=== PATIENT | female | born 1945 | race Caucasian/White ===

== ENCOUNTER 2024-04-23 11:31 | Outpatient (REF) | payer MEDICARE, SELFPAY ==
[2024-04-23 12:24] LABS: PCR FLU A Negative PCR FLU A (Negative); PCR FLU B Negative PCR FLU B (Negative); PCR RSV Negative PCR RSV (Negative); SARS PCR* Negative SARS-CoV-2 (Negative)
== END 2024-04-23 11:32 | disposition home or self-care (01) ==
LOC: NPINS 11:31
PROVIDERS: Visit Provider Nurse Practitioner Gerontology
DX: R50.9 Fever, unspecified (principal)
CPT/HCPCS: 87631

== ENCOUNTER 2024-08-25 15:17 | Outpatient (REF) | payer MEDICARE, OTHER, SELFPAY ==
[2024-08-25 15:57] LABS: Appearance Urine Cloudy (Clear); Bilirubin Urine Negative (Negative); Blood Urine Negative (Negative); Color Urine Yellow (Yellow); Glucose Urine Negative (Negative); Ketones Urine Negative (Negative); Leukocyte Esterase Urine Negative (Negative); Nitrite Urine Negative (Negative); Protein Urine Negative (Negative); Specific Gravity Urine 1.015 (1.000-1.030); Urobilinogen Urine 0.2 (0.2-1.0)
[2024-08-25 16:09] LABS: RBC Urine 0-2 (0-2); WBC Urine 0-2 (0-5)
== END 2024-08-25 15:18 | disposition home or self-care (01) ==
LOC: NPINS 15:17
PROVIDERS: Visit Provider Nurse Practitioner Gerontology
DX: R82.998 Other abnormal findings in urine (principal); F05 Delirium due to known physiological condition
CPT/HCPCS: 81001; 87086